=== PATIENT | female | born 1965 | race Caucasian/White ===

== ENCOUNTER → 2019-03-11 | Day surgery (SDC) | payer OTHER ==
[2019-03-06 15:36] LABS: BASOPHILS % 0.4 % (0.0-1.0); EOSINOPHILS # (AUTO) 0.6 (0.0-0.4); EOSINOPHILS % 7.7 % (0.0-6.0); HEMATOCRIT 40.5 % (34.2-44.1); LYMPHOCYTES # (AUTO) 2.4 (1.0-3.2); LYMPHOCYTES % 31.5 % (18.0-39.1); MEAN CORPUSCULAR HGB CONC 32.1 g/dL (31-35); MEAN CORPUSCULAR VOLUME 96.4 fL (81-99); MONOCYTES # (AUTO) 0.7 (0.2-0.8); MONOCYTES % 9.2 % (4.4-11.3); NEUTROPHILS # (AUTO) 3.9 (2.1-6.9); NEUTROPHILS % 50.9 % (38.7-80.0); PLATELET COUNT 238 x10e3/uL (140-360); RED CELL DISTRIBUTION WIDTH 13.1 % (11.7-14.4)
[2019-03-06 15:46] LABS: INR 0.85; PROTHROMBIN TIME 12.1 seconds (11.9-14.5)
[2019-03-06 15:56] LABS: ALBUMIN 3.8 g/dL (3.5-5.0); ALBUMIN/GLOBULIN RATIO 1.3 (0.8-2.0); ANION GAP 11.9 mmol/L (8-16); CALCIUM 9.2 mg/dL (8.4-10.2); CREATININE, SERUM 0.98 mg/dL (0.57-1.11); POTASSIUM 3.9 mmol/L (3.5-5.1)
[2019-03-11] VITALS (9 sets, daily range): BP systolic 112–125; BP diastolic 60–96
[~2019-03-11] VITALS: Ht 170.2 cm; Wt 106.6 kg
[~2019-03-11] MED LIST: ALPRAZOLAM 0.5 MG TAB ONE; ASPIR 8181 MG PO; ATORVASTATIN CA20 MG PO; COLCRYS0.6 MG PO; DIPHENHYDRAMINE HCL 25 MG CAP ONE; DUEXIS 800-26.1 EACH; FENTANYL CITRATE/PF 100MCG/2 ML INJ ONE; HEPARIN SOD (PORCINE) 1000 UNIT/ML 30ML ONE; HEPARIN SOD/SOD CHLORIDE 2,000 ML ONE; IBUPROFEN400 MG PO; IOPAMIDOL 370 MG/ML 200 ML INFUS..BTL INJ ONE; LIDOCAINE HCL 2% LOCAL 20 ML VIAL ONE; LYRICA50 MG PO; MIDAZOLAM HCL 2 MG/2 ML VIAL ONE; MYLANTA PO; NITROGLYCERIN/D5W 200 MCG/ML 250 ML ONE; OMEPRAZOLE40 MG PO; SODIUM CHLORIDE 0.9% 1000ML 1,000 ML ONE; TIZANIDINE HCL4 MG PO; VERAPAMIL HCL 2.5 MG/ML 2 ML VIAL ONE; [UNRECOGNIZED DRUG - OTHER]
--- OUTSIDE RECORDS SUMMARY | 2019-03-11 06:45 | XMS REPORT ---
Author Author [facility] Address Unknown Phone Unavailable Care Team Providers Care Job Coaching Name Role Phone Unavailable Unavailable Problems This patient has no known problems. Allergies, Adverse Reactions, Alerts This patient has no known allergies or adverse reactions. Medications This patient has no known medications. Encounters Start Date/Time End Date/Time Encounter Type Admission Type Attending Clinicians Care Facility Care Department Encounter ID 2019-02-27 23:40:00 2019-02-27 23:40:00 Outpatient [facility] [id number]
--- NOTE | 2019-03-11 09:45 | NUR ---
2483 bedside report received from VAHE Beyer. Alert oriented and appropriate, PERRLA, respirations even and unlabored to room air. Pulses x4 extremities equal and strong. Pedal pulses PT/DP . Cap fill brisk < 3 sec. Skin warm and dry integrity appears D/I IV 20g to left hand (400cc LTC NS at KVO) presents healthy w/o s/s of infiltration or complaint. Abdomen soft and supple. pt offered toileting, denies need to urinate or defecate. No personal affects with patient. Family Mati . Pt and family verbalizes understanding of POC.HOB down Rt leg keep straight TR band decrease air at 1040 ok dc home per Dr Hendrickson at 1145-12n if stasis remains. Currently w/o complaint of pain or need. assist with po intake.Tolerating well family at bedside to assist. mihir/vahe
--- NOTE | 2019-03-11 10:40 | NUR ---
1040 Compression removal: Initial Cuff volume 13 cc 1045 -2 cc Removed No hematoma/bleeding noted with normal neurovascular function. 1100 -2cc Removed No hematoma/ bleeding noted with normal neurovascular function. 1115 -2cc Removed No hematoma/bleeding noted with normal neurovascular function. 1130 -2 cc Removed No hematoma/ bleeding noted with normal neurovascular function. Air removal completed. 1130a Stasis achieved sterile 2x2,Tegaderm, Coban dressing No hematoma, bleeding noted with normal neurovascular function. Wrist splint in place. Pt instructed on POC. Ds/Rn
--- NOTE | 2019-03-11 11:45 | NUR ---
1145 Pt meets DC criteria. Rt Radial andrt groin Mynx assessed for s/s of complication and presence of hematoma. warm, dry, no discolor, and pulses present. IV removed from hand Distal tip appears intact. VS WNL. Pt denies pain, sob, or need at this time. Family at cat [place] [phone]. Review of discharge paperwork and follow up instructions. verbalized understanding. Pt to wheelchair and transported to front of hospital. Transferred to private vehicle under own strength w/o incident with DC paperwork in hand. -ds/rn
--- NOTE | 2019-03-11 16:30 | Operative Report ---
DATE OF PROCEDURE: 03/11/2019 SURGEON: Katheryn Hendrickson MD PROCEDURES: 1. Selective coronary angiography x2. 2. Left heart catheterization. CONSENT: Informed consent was obtained and documented in the chart. SEDATION: 1. Midazolam 6 mg. 2. Fentanyl 150 mcg. PROCEDURE IN DETAIL: The patient was brought to the cardiac catheterization laboratory in a fasting state after written informed consent was obtained. Bilateral groins and right wrist were prepped and draped in the usual sterile fashion. A 1% lidocaine was used to achieve local anesthesia over the right wrist. The right radial artery was accessed with a micropuncture needle and a 5-Sudanese long sheath was inserted via modified Seldinger technique. A 5-Sudanese TIG was inserted and advanced into the ascending aorta and left ventricle. Hemodynamic measurements were obtained. Due to inability to cannulate the left main coronary artery, the 5-Sudanese TIG was withdrawn and a 5-Sudanese JR 3.5 was inserted and advanced into the ascending aorta. Due to inability to engage the coronary arteries, the JR 3.5 was withdrawn and attention was turned to the right groin. A 1% lidocaine was used to achieve local anesthesia. The micropuncture needle was used to access the right femoral artery and a 5-Sudanese sheath was placed via modified Seldinger technique. The 5-Sudanese JR 3.5 was inserted and advanced into the ascending aorta. The left main coronary artery was cannulated under fluoroscopic guidance. Selective coronary angiograms were obtained. The JR 3.5 was then withdrawn over the J wire, and a 5-Sudanese 3DRC was inserted and advanced into the ascending aorta over the wire. The 3DRC was used to cannulate the right coronary artery under fluoroscopic guidance and selective coronary angiograms were obtained. The 3DRC was withdrawn and angiogram was performed of the right external iliac system followed by the right brachial artery. The 5-Sudanese sheath was removed and Mynx was used to achieve hemostasis. The 5-Sudanese long sheath was then removed from the right radial artery and TR band was applied to achieve hemostasis. The patient tolerated the procedure well without immediate complications. FINDINGS: 1. Left main coronary artery bifurcates into the left anterior descending and circumflex arteries. The LAD is a moderate caliber vessel that wraps around the apex. There was no angiographic evidence of disease. 2. The left circumflex artery is a moderate caliber vessel with a small OM1 and a larger branching OM2. There was no angiographic evidence of disease. 3. The right coronary artery is a large caliber vessel, which gives rise to the PDA. There was no angiographic evidence of disease. LVEDP 25 mmHg. 4. Right external iliac artery without evidence of any significant disease. 5. The right brachial artery was tortuous with evidence of vasospasm. IMPRESSION: 1. Normal coronary arteries. 2. Elevated left ventricular filling pressures. RECOMMENDATIONS: Medical therapy and aggressive risk factor modification. Katheryn Hendrickson MD ABS/MODL /[id number] MTDD
== END | disposition home or self-care (01) ==
LOC: CATH LAB 06:35
PROVIDERS: ATTEND Internal Medicine
DX: I25.10 Atherosclerotic heart disease of native coronary artery without angina pectoris (principal); E78.5 Hyperlipidemia, unspecified; R00.2 Palpitations; F17.200 Nicotine dependence, unspecified, uncomplicated; Z88.6 Allergy status to analgesic agent; Z88.8 Allergy status to other drugs, medicaments and biological substances; Z79.82 Long term (current) use of aspirin; Z82.49 Family history of ischemic heart disease and other diseases of the circulatory system
CPT/HCPCS: 36415; 80053; 85025; 85610; 93458; C1760; C1769 ×3; C1887; J1644; J2001; J2250; J3010; J7030; Q9967